=== PATIENT | male | born 1990 | race Caucasian/White ===

== ENCOUNTER 2021-09-17 12:25 | Outpatient (CLI) | payer BC, SELFPAY ==
--- NOTE | ~2021-09-17 | XR_ITS ---
EXAMINATION: XR chest 2V DATE: 09/17/2021 12:54 INDICATION: Chest pain TECHNIQUE: PA and lateral views of the chest are obtained. COMPARISON: None available FINDINGS: The lungs are free of acute opacities. There is no pleural effusion or pneumothorax. The ca rdiomediastinal silhouette is normal. There is mild thoracic spondylosis. IMPRESSION: 1. No acute cardiopulmonary abnormality. Reviewed, dictated and finalized at location A.
[2021-09-17 12:40] LABS: Basophils Absolute Auto 0.03 K/mm3 (0.00-0.10); Basophils Percent Auto 0.4 % (0.0-1.0); Eosinophils Absolute Auto 0.06 K/mm3 (0.02-0.50); Eosinophils Percent Auto 0.9 % (1.0-6.0); Hematocrit 46.9 % (40.0-54.0); Hemoglobin 16.4 g/dL (14.0-18.0); Immature Granulocyte Absolute 0.04 K/mm3 (0.00-0.00); Immature Granulocyte Percent A 0.6 % (0.0-0.0); Lymphocytes Absolute Auto 2.42 K/mm3 (1.10-4.50); Lymphocytes Percent Auto 35.4 % (18.0-42.0); Mean Corpuscular Hemoglobin 31.6 pg (27.0-31.0); Mean Corpuscular Volume 90.4 fL (78.0-102.0); Mean Platelet Volume 9.7 fl (8.7-11.0); Monocytes Absolute Auto 0.91 K/mm3 (0.10-0.90); Monocytes Percent Auto 13.3 % (2.0-11.0); Neutrophils Absolute Auto 3.4 K/mm3 (1.7-7.2); Neutrophils Percent Auto 49.4 % (50.0-70.0); Platelet Count Result 249 K/mm3 (150-420); Red Blood Count 5.19 M/mm3 (4.70-6.10); Red Cell Distribution Width 12.2 % (11.6-14.4); White Blood Count 6.8 K/mm3 (4.8-10.8)
--- NOTE | 2021-09-17 12:55 | ECG_ITS ---
Measurements Intervals [place] Rate: 91 P: 58 AK: 140 QRS: 83 QRSD: 91 T: 39 QT: 344 QTc: 424 Interpretive Statements SINUS RHYTHM DELAYED PRECORDIAL R/S TRANSITION BORDERLINE ECG Electronically Signed On 09-17-2021 13:02:56 CDT by Geoff Zuleta D.O.
[2021-09-17 12:58] LABS: Alanine Aminotransferase 71 U/L (16-63); Albumin Level 4.2 g/dL (3.4-5.0); Alkaline Phosphatase 80 U/L (46-116); Anion Gap 13 mmol/L (8-16); Aspartate Amino Transferase 28 U/L (15-37); Bilirubin,Total 0.9 mg/dL (0.00-1.00); Blood Urea Nitrogen 13 mg/dL (7-18); Calcium 8.6 mg/dL (8.5-10.1); Carbon Dioxide 26 mmol/L (21-32); Chloride 101 mmol/L (98-108); Estimated Glomerular Filt Rate > 60; Glucose 90 mg/dL (70-99); Osmolality Calculated 290 mOsm/kg (285-295); Sodium 140 mmol/L (136-145); Total Protein 7.6 g/dL (6.4-8.2)
== END 2021-09-17 12:26 | disposition home or self-care (01) ==
PROVIDERS: PCP Family Medicine; Visit Provider Nurse Practitioner Family
DX: R07.9 Chest pain, unspecified (principal)
CPT/HCPCS: 36415; 71046; 80053; 85025; 93005

== ENCOUNTER 2024-04-25 10:53 | Emergency (ER) | payer OTHER, SELFPAY ==
--- NOTE | 2024-04-25 11:11 | ER_ITS ---
This report was moved to the correct visit on 05/15/2024. The original report was signed by Igor Ghosh APRN on 04/25/24 1113. HPI - Skin/Abscess/Foreign Bdy General Chief complaint: Skin/Abscess/Foreign Body Stated complaint: R arm infection Time Seen by Provider: 04/25/24 10:59 History of Present Illness HPI narrative: 33-year-old male presents to the emergency room for evaluation of redness swelling and pain to his right elbow. Patient was seen at outside emergency room last night and diagnosed with cellulitis. Patient was given 1 round of IV Rocephin, sent home with clindamycin. Patient was instructed return to the emergency room if the swelling was worse. Denies fevers. Denies right arm weakness or neuropathy. Related Data Allergies Allergy/AdvReac Type Severity Reaction Status Date / Time Sulfa (Sulfonamide AdvReac Unknown Verified 04/25/24 10:54 Antibiotics) Review of Systems Review of Systems: ROS unremarkable except for stated in the HPI Exam Narrative: GENERAL: Well-appearing, well-nourished, no physical limitations, and in no acute distress. HEAD: Normocephalic, atraumatic. EYES: Conjunctivae normal, PERRLA and EOMI. CHEST: Clear to auscultation. No respiratory distress. No wheezes rales or rhonchi. HEART: Regular rate and rhythm. No murmur heard. Normal peripheral pulses. EXTREMITIES: Normal range of motion. No edema. No clubbing or cyanosis SKIN: Right elbow: Area of erythema and swelling. x2 overlying healing wounds NEURO: No focal deficits. Alert and oriented x3. MAEW. CN's II-XI intact bilaterally, normal gait PSYCH: Cooperative. Normal mood and affect. Discharge Plan Discharge Clinical Impression: Cellulitis of right elbow Patient Disposition: Home, Self-Care Condition: Stable Instructions: Antibiotic Form, Cellulitis (ED) Additional Instructions: Continue current medical management. Follow up with her primary care doctor in 2-3 days if symptoms are not improving. Follow-up/Referrals: Dean Ng M.D. [Primary Care Provider] - Time of Disposition: 11:12 This report may have been done utilizing a voice recognition system. Attempts have been made to correct errors. However, there may be uncorrected grammatical, spelling, and recognition errors present. Report Initialized date/time: Igor Ghosh APRN 04/25/24 / 1111 Electronically signed by: Igor Ghosh APRN 04/25/24 1113 [facility]
== END 2024-04-25 11:30 | disposition home or self-care (01) ==
LOC: ANHED 05-14 14:59
PROVIDERS: Emergency Provider Nurse Practitioner Family; PCP Family Medicine
DX: L03.113 Cellulitis of right upper limb (principal)
CPT/HCPCS: 99199; 99281

== ENCOUNTER 2024-04-26 01:03 | Inpatient (IN) | payer OTHER, SELFPAY ==
[2024-04-25 11:04] VITALS: BP 144/83; PULSE 89; RESP 12; TEMP 36.8; O2SAT 100
--- NOTE | 2024-04-25 11:06 | ED.SKABFB ---
HPI - Skin/Abscess/Foreign Bdy General Chief complaint: Skin/Abscess/Foreign Body Stated complaint: R arm infection Time Seen by Provider: 04/25/24 10:59 History of Present Illness HPI narrative: 33-year-old male presents to the emergency room for evaluation of redness swelling and pain to his right elbow. Patient was seen at outside emergency room last night and diagnosed with cellulitis. Patient was given 1 round of IV Rocephin, sent home with clindamycin. Patient was instructed return to the emergency room if the swelling was worse. Denies fevers. Denies right arm weakness or neuropathy. Related Data Allergies Allergy/AdvReac Type Severity Reaction Status Date / Time Sulfa (Sulfonamide AdvReac Unknown Verified 04/25/24 10:54 Antibiotics) Review of Systems Review of Systems: ROS unremarkable except for stated in the HPI Exam Narrative: GENERAL: Well-appearing, well-nourished, no physical limitations, and in no acute distress. HEAD: Normocephalic, atraumatic. EYES: Conjunctivae normal, PERRLA and EOMI. CHEST: Clear to auscultation. No respiratory distress. No wheezes rales or rhonchi. HEART: Regular rate and rhythm. No murmur heard. Normal peripheral pulses. EXTREMITIES: Normal range of motion. No edema. No clubbing or cyanosis SKIN: Right elbow: Area of erythema and swelling. x2 overlying healing wounds NEURO: No focal deficits. Alert and oriented x3. MAEW. CN's II-XI intact bilaterally, normal gait PSYCH: Cooperative. Normal mood and affect. Discharge Plan Discharge Clinical Impression: Cellulitis of right elbow Patient Disposition: Home, Self-Care Condition: Stable Instructions: Antibiotic Form, Cellulitis (ED) Additional Instructions: Continue current medical management. Follow up with her primary care doctor in 2-3 days if symptoms are not improving. Follow-up/Referrals: Dean Ng M.D. [Primary Care Provider] - Time of Disposition: 11:12
[2024-04-25 23:30] VITALS: BP 144/74; PULSE 87; RESP 13; TEMP 36.2; O2SAT 96; BMI 31.2
--- NOTE | 2024-04-25 23:58 | PM.IMHP ---
H&P: HPI History of Present Illness Date/Time: 04/25/24 23:58 Chief Complaint: Patient is sent to our hospital for direct admit with the cellulitis of right elbow Narrative: Our patient is a very pleasant 33 years old gentleman who is physically active. He was in a family birthday doing an obstacle course on his arms and knees with his friends and family few days ago., which caused abrasions on his knees and elbows. He was gardening a couple days ago in his backyard with added to a few more abrasions. He noticed some swelling of his right elbow with redness, got concerned and went to [place] [facility] for evaluation. He was diagnosed with cellulitis, given 1 dose of IV Rocephin and discharged on oral clindamycin. ER physician also marked edges of the affected area and instructed him to come back to the ER if the redness extends those marked lines. He came to our ER this morning for evaluation, was treated and discharged. He got worse in the afternoon hence went back to [place] [facility] who evaluated patient and recommended admission for IV antibiotics. No bed was available in local hospital hence I accepted patient for direct admission in our hospital. I saw and examined the patient at the bedside. He is complaining of pain and swelling in the right elbow but still has intact range of motion. He was given 1 dose of IV vancomycin in the transferring ER. I will admit the patient for IV antibiotics, orthopedic evaluation in a.m., medical management and further workup. Review of Systems Review of Systems: 14 systems were reviewed with pertinent positives and negatives per HPI. Except as documented in the HPI/progress notes, all other systems were reviewed and are negative. All systems reviewed & are unremarkable except as noted in HPI and below PMFSH Past Medical History Medical History (Updated 04/26/24 @ 00:57 by Yifan Samayoa MD) Essential hypertension Generalized anxiety disorder Social History Social History Smoking status: Never smoker Alcohol intake: current Drinks per week: 1 Substance use: never Do You Feel Safe in your Home?: Yes Lack of Transportation: No Lack of Food: Never True Current Housing: I Have Housing Concerned About Future Housing: No Difficulty Paying Gas/Electric Bills: No Difficulty Paying for Meds: No Currently Unemployed: No Education: Bachelor's Degree Difficulty w/ Childcare or Family Care: No Spiritual care concerns: No Meds Home Medications and Allergies Home Medications Medication Instructions Recorded Confirmed Type buspirone 15 mg tablet 15 mg PO BID 04/26/24 04/26/24 History buspirone 15 mg tablet 15 mg PO DAILY PRN anxiety 04/26/24 04/26/24 History clindamycin HCl 300 mg capsule 300 mg PO TID 04/26/24 04/26/24 History lisinopril 20 mg tablet 20 mg PO DAILY 04/26/24 04/26/24 History lorazepam 0.5 mg tablet 0.5 mg PO DAILY PRN Anxiety 04/26/24 04/26/24 History trazodone 50 mg tablet 50 mg PO HS 04/26/24 04/26/24 History Allergies Allergy/AdvReac Type Severity Reaction Status Date / Time Sulfa (Sulfonamide AdvReac Unknown Verified 04/25/24 10:54 Antibiotics) Vital Signs Vital Signs - 24 hr 04/25/24 11:04 Temperature 36.8 C Pulse Rate 89 Respiratory Rate 12 Blood Pressure 144/83 H Pulse Oximetry 100 Oxygen Delivery Room Air Exam Narrative: PHYSICAL EXAMINATION: Vital signs: Please see the chart General physical exam: Obese white gentleman, lying in bed, pleasant and cooperative with exam Head/eyes: Atraumatic, EOMI, PERRLA ENT: Moist mucous membranes, nasal passages clear Neck: Supple, full range of motion, trachea midline CVS: S1 + S2, regular rate and rhythm, no murmurs Respiratory: Bilaterally fair air entry in both lung proctor, mild B/L crackles, symmetric chest expansion, no distress Abdomen: Soft, non-tender, bowel sounds +ve, no organomegaly Extremities: No clubbing, no cy
--- NOTE | ~2024-04-26 | XR_ITS ---
EXAMINATION: XR elbow RT min 3V DATE: 04/26/2024 09:43 INDICATION: Right elbow cellulitis. TECHNIQUE: 4 views of right elbow were obtained. COMPARISON: None. FINDINGS: Bone alignment is normal. No fracture. Joint spaces are normal. No elbow joint effusion. Th ere is posterior soft tissue swelling. IMPRESSION: 1. Posterior soft tissue swelling. No evidence of osteoarthritis. Reviewed, dictated and finalized at location A.
[2024-04-26 00:03] VITALS: BMI 31.1
--- NOTE | 2024-04-26 00:11 | PC.NURSE ---
This patient, Kendall Ramirez, was admitted to [facility] Surg Room 326-01. Patient/family oriented to hospital policies and general routines including ID bracelet, bed and alarms, visiting hours, pain management, procedures, bathroom and other care routines, personal items, smoking policy, room service/diet, and visiting hours. Information on how to activate the Rapid Response Team has been discussed. Patient/Family are encouraged to report perceived risks to care and to ask questions if they do not understand what they are told or what they should do.
[2024-04-26 03:29] LABS: Basophils Percent Auto 0.2 % (0.2-1.2); Eosinophils Absolute Auto 0.1 K/mm3 (0-0.3); Eosinophils Percent Auto 0.5 % (0-4.4); Hematocrit 41.1 % (42.0-52.0); Hemoglobin 14.3 g/dL (14.0-18.0); Immature Granulocyte Absolute 0.05 K/mm3 (0.00-0.031); Immature Granulocyte Percent A 0.4 % (0-0.5); Lymphocytes Absolute Auto 2.08 K/mm3 (0.9-3.2); Lymphocytes Percent Auto 17.1 % (18.3-44.2); Mean Corpuscular HGB Conc 34.8 g/dl (32-36); Mean Corpuscular Hemoglobin 32.1 pg (26-34); Mean Corpuscular Volume 92.2 fl (80-100); Mean Platelet Volume 9.7 fl (7.4-10.4); Monocytes Absolute Auto 1.3 K/mm3 (0.1-0.6); Monocytes Percent Auto 10.8 % (2.6-8.5); Neutrophils Absolute Auto 8.6 K/mm3 (1.3-6.7); Platelet Count Result 174 k/mm3 (150-375); Red Blood Count 4.46 M/mm3 (4.6-6.20); Red Cell Distribution Width 12.7 % (11.5-14.5); White Blood Count 12.2 K/mm3 (4.5-10.0)
[2024-04-26 03:42] LABS: Alanine Aminotransferase 31 U/L (6-50); Albumin Level 4.4 g/dL (3.5-5.1); Alkaline Phosphatase 71 U/L (38-126); Anion Gap 6 mmol/L (4-12); Aspartate Amino Transferase 27 U/L (17-59); Bilirubin,Total 1.4 mg/dL (0.2-1.3); Blood Urea Nitrogen 11 mg/dL (9-20); Carbon Dioxide 24 mmol/L (22-30); Chloride 108 mmol/L (98-107); Estimated CRCL calculation 104 ml/min; Estimated Glomerular Filt Rate > 60; Glucose 104 mg/dL (65-110); Magnesium 2.1 mg/dL (1.6-2.3); Phosphorus 3.2 mg/dL (2.5-4.5); Potassium 3.9 mmol/L (3.4-5.0); Sodium 138 mmol/L (137-145)
[2024-04-26] MEDS: ACETAMINOPHEN 325 MG TABLET 650 MG PO ×2 (03:56→12:54)
[2024-04-26 05:26] VITALS: BP 135/77; PULSE 96; RESP 12; TEMP 36.8; O2SAT 96
[2024-04-26] MEDS: VANCOMYCIN 1,500 MG/NS 500 ML 1,500 MG/500 ML BAG 250 MG IVPB ×2 (06:11→18:05)
--- NOTE | 2024-04-26 08:20 | PM.IMPN ---
Progress Note: A&P Assessment and Plan (1) Cellulitis of right elbow: Code(s): L03.113 - Cellulitis of right upper limb Status: Acute (2) Leukocytosis: Code(s): D72.829 - Elevated white blood cell count, unspecified Status: Acute (3) Olecranon bursitis of right elbow: Code(s): M70.21 - Olecranon bursitis, right elbow Status: Acute (4) Generalized anxiety disorder: Code(s): F41.1 - Generalized anxiety disorder Status: Acute (5) Essential hypertension: Code(s): I10 - Essential (primary) hypertension Status: Acute Plan Admit patient to medical unit under full inpatient status Patient has the cellulitis of the right elbow with possible right olecranon bursitis Patient received 1 dose of IV vancomycin in the transferring ER Continue with IV vancomycin in our hospital with pharmacy to dose based on renal functions Added Rocephin 1 g IV daily Labs and electrolytes reviewed from transferring ER Patient's leukocytosis was borderline high at 12.4 - monitor Orthopedic evaluation ordered for further management and treatment recommendations Repeat labs in a.m. Electrolyte replacement as per protocol. Patient will be monitored very closely on the floor. # chronic htn- continue home lisinopril 20 mg # chronic insomnia- continue home trazodone Time Spent With Patient Time with patient: 25 - 35 minutes Subjective Date/time seen: 04/26/24 08:20 Interval history: 33-year-old male presents to the emergency room for evaluation of redness swelling and pain to his right elbow. Notes from er and h/p reviewed: He was in a family birthday doing an obstacle course on his arms and knees with his friends and family few days ago., which caused abrasions on his knees and elbows. He was gardening a couple days ago and added few more abrasions. He noticed some swelling of his right elbow with redness, got concerned and went to [place] [facility] for evaluation. He was diagnosed with cellulitis, given 1 dose of IV Rocephin and discharged on oral clindamycin. ER physician also marked edges of the affected area and instructed him to come back to the ER if the redness extends those marked lines. He came to our ER this morning for evaluation, was treated and discharged. He got worse in the afternoon hence went back to [place] ER who evaluated patient and recommended admission for IV antibiotics. No bed was available in local hospital - so he was accepted as a direct admission here. He is admitted for IV antibiotics, orthopedic evaluation in a.m (consult is placed per Dr Samayoa), medical management and further workup. Ortho was consulted for possible aspiration Review of Systems Review of Systems: 14 systems were reviewed with pertinent positives and negatives per HPI. Except as documented in the HPI/progress notes, all other systems were reviewed and are negative. All systems reviewed & are unremarkable except as noted in HPI and below Exam Narrative: PHYSICAL EXAMINATION: Vital signs: Please see the chart General physical exam: Obese white gentleman, lying in bed, pleasant and cooperative with exam Head/eyes: Atraumatic, EOMI, PERRLA ENT: Moist mucous membranes, nasal passages clear Neck: Supple, full range of motion, trachea midline CVS: S1 + S2, regular rate and rhythm, no murmurs Respiratory: Bilaterally fair air entry in both lung proctor, mild B/L crackles, symmetric chest expansion, no distress Abdomen: Soft, non-tender, bowel sounds +ve, no organomegaly Extremities: No clubbing, no cyanosis, no edema, no calf tenderness Musculoskeletal: Moves all, full range of motion, no muscle spasms, ++ swelling/erythema over right elbow/olecranon process Skin: Warm, dry, no jaundice, no cyanosis Neurological: Awake, alert, oriented x 3, cranial nerves II-XII intact, no focal neurological deficits Psychiatric: Normal mood, Non suicidal Objective Data Vital Signs Vital Signs: Vital Si
[2024-04-26] MEDS: busPIRone HCL 5 MG TABLET 15 MG PO ×2 (09:19→16:40)
[2024-04-26] MEDS: lisinopriL 20 MG TABLET PO (09:19)
[2024-04-26] MEDS: ENOXAPARIN 40 MG/0.4 ML SYRINGE SUB-Q (09:20)
--- NOTE | 2024-04-26 11:06 | PM.CNOR ---
Assessment and Plan Assessment and plan (1) Cellulitis of right elbow: Code(s): L03.113 - Cellulitis of right upper limb Status: Acute Assessment and Plan: Plan for aspiration of right elbow olecranon bursa. Risks, benefits and alternatives discussed with the patient. Questions answered. He verbalizes understanding and would like to proceed. Plan New patient evaluation for chief complaint Right elbow pain and swelling. History, physical exam and radiographs reviewed with the patient. Radiographs show soft tissue swelling posterior elbow. Exam show cellulitis right elbow With small olecranon bursitis. Discussed the condition, nature, etiology and course of natural history with the patient. Treatment options including surgical and nonoperative treatment were reviewed. Risks and benefits of each as well as alternatives reviewed. The patient's questions were answered. Conservative treatment ice, compression and elevation. No surgical indication at this time. continue IV antibiotics. Indicated for aspiration right elbow olecranon bursa with laboratory testing and cultures. History of Present Illness HPI Consult date: 04/26/24 Requesting physician: Yifan Samayoa MD Chief complaint: Cellulitis Narrative: 33-year-old with worsening right elbow redness and swelling. Initially with activity several days ago caused abrasion to posterior elbow. Multiple visits to the emergency room with single dose of IV antibiotics and oral antibiotics. Condition worsened and patient was admitted directly for IV antibiotics. Review of Systems Constitutional: Constitutional: Denies fever(s) Eyes: Eyes: Denies blurry vision ENT: Reports Normal hearing present Cardiovascular: Cardiovascular: Denies chest pain and Denies dyspnea Respiratory: Respiratory: Denies dyspnea and Denies wheezing Gastrointestinal: Gastrointestinal: Denies abdominal pain Genitourinary: Genitourinary: Denies urinary urgency Musculoskeletal: Musculoskeletal: Reports as per HPI and Denies numbness Integumentary/Breasts: Skin/Breast: Denies changing lesions and Denies sores Neurologic: Reports Normal hearing present, Denies behavioral changes, Denies confusion, Denies numbness and Denies convulsions Psychiatric: Psychiatric: Denies behavioral changes, Denies confusion and Denies hallucinations Endocrine: Endocrine: Denies heat intolerance Hematologic/Lymphatic: Hematologic/Lymphatic: Denies easy bleeding Allergic/Immunologic: Allergic/Immunologic: Denies wheezing PMFSH Past Medical History Medical History Essential hypertension Generalized anxiety disorder Social History Social History Smoking status: Never smoker Alcohol intake: current Drinks per week: 1 Substance use: never Do You Feel Safe in your Home?: Yes Lack of Transportation: No Lack of Food: Never True Current Housing: I Have Housing Concerned About Future Housing: No Difficulty Paying Gas/Electric Bills: No Difficulty Paying for Meds: No Currently Unemployed: No Education: Bachelor's Degree Difficulty w/ Childcare or Family Care: No Spiritual care concerns: No Meds Home Medications and Allergies Home Medications Medication Instructions Recorded Confirmed Type buspirone 15 mg tablet 15 mg PO BID 04/26/24 04/26/24 History buspirone 15 mg tablet 15 mg PO DAILY PRN anxiety 04/26/24 04/26/24 History clindamycin HCl 300 mg capsule 300 mg PO TID 04/26/24 04/26/24 History lisinopril 20 mg tablet 15 mg PO DAILY 04/26/24 04/26/24 History lorazepam 0.5 mg tablet 0.5 mg PO DAILY PRN Anxiety 04/26/24 04/26/24 History trazodone 50 mg tablet 50 mg PO HS 04/26/24 04/26/24 History Allergies Allergy/AdvReac Type Severity Reaction Status Date / Time Sulfa (Sulfonamide AdvReac Unknown Verified 04/25/24 10:54 Antibiotics) Vital
[2024-04-26] MEDS: SODIUM CHLORIDE 0.9% IV 1,000 ML 100 ML IV CONT ×2 (12:26→21:02)
[2024-04-26 13:19] LABS: Color Synovial Fluid Red (Colorless); Source Synovial Fluid Synovial fluid
[2024-04-26 13:20] LABS: Appearance Synovial Fluid Bloody (Clear)
--- NOTE | 2024-04-26 13:21 | P.OPB_ITS ---
Procedure Note - Brief Procedure Note - Brief Date of procedure: 04/26/24 Cellulitis/Olecranon Bursitis Post-op diagnosis: Same Procedure performed: Right Elbow Bursitis Aspiration Surgeon: KERMIT Salcedo Radiologic Technology Teacher: n/a Anesthesia: none Findings: Right Elbow Olecranon Aspiration performed under sterile conditions. STAT gram stain, cell count and culture sent to lab. Adhesive band-aid applied. Description of procedure: The risks of injection were reviewed including but not limited to skin color changes, atrophy of the soft tissue, tendon or soft tissue rupture, joint degeneration, hyper inflammatory response, allergic reaction, continued pain or dysfunction. Specific risks of the procedure including deep infection or soft tissue rupture or recurrence of symptoms reviewed. No guarantees were offered. The patient understands the need for possible further treatment. Implants: n/a Estimated blood loss (mL): 0 Total Tourniquet Time: 0 IV fluids (mL): 7 Urine output (mL): 0 Drains: No Packing: No Pathology: None sent Complications: No immediate complications Condition: Stable Disposition: No change
[2024-04-26 13:55] VITALS: BP 125/65; PULSE 96; RESP 16; TEMP 36.7; O2SAT 95
[2024-04-26 13:56] LABS: Crystals Synovial Fluid None Seen (None Seen)
[2024-04-26 14:25] LABS: Neutrophils Synovial Fluid 100 % (0-25)
[2024-04-26] MEDS: HYDROcodone/acetaminophen (*CRX) 5-325 MG TABLET 1 TAB PO ×2 (16:43→21:06)
--- NOTE | 2024-04-26 19:05 | PC.NURSE ---
On 04/26/24, the INTERACTIVE MULTIMEDIA DESIGNER,Sylvia Roper, provided care and completed [employer] documentation on this patient. I have reviewed the INTERACTIVE MULTIMEDIA DESIGNER's documentation and agree with the findings.
[2024-04-26 20:54] VITALS: BP 138/77; PULSE 85; RESP 16; TEMP 36.1; O2SAT 100
[2024-04-26] MEDS: traZODone HCL 50 MG TABLET PO (21:01)
[2024-04-27] MEDS: HYDROcodone/acetaminophen (*CRX) 5-325 MG TABLET 1 TAB PO (01:59)
[2024-04-27 06:02] LABS: Basophils Percent Auto 0.3 % (0.2-1.2); Eosinophils Absolute Auto 0.1 K/mm3 (0-0.3); Eosinophils Percent Auto 0.7 % (0-4.4); Hematocrit 39.2 % (42.0-52.0); Immature Granulocyte Absolute 0.06 K/mm3 (0.00-0.031); Immature Granulocyte Percent A 0.5 % (0-0.5); Lymphocytes Absolute Auto 2.37 K/mm3 (0.9-3.2); Lymphocytes Percent Auto 20.8 % (18.3-44.2); Mean Corpuscular HGB Conc 33.2 g/dl (32-36); Mean Corpuscular Hemoglobin 31.4 pg (26-34); Mean Corpuscular Volume 94.7 fl (80-100); Mean Platelet Volume 10.2 fl (7.4-10.4); Monocytes Absolute Auto 1.2 K/mm3 (0.1-0.6); Monocytes Percent Auto 10.5 % (2.6-8.5); Neutrophils Absolute Auto 7.7 K/mm3 (1.3-6.7); Neutrophils Percent Auto 67.2 % (45.5-73.1); Platelet Count Result 184 k/mm3 (150-375); Red Blood Count 4.14 M/mm3 (4.6-6.20); Red Cell Distribution Width 12.5 % (11.5-14.5); White Blood Count 11.4 K/mm3 (4.5-10.0)
[2024-04-27 06:11] LABS: Anion Gap 6 mmol/L (4-12); Blood Urea Nitrogen 8 mg/dL (9-20); Calcium 8.4 mg/dL (8.4-10.2); Carbon Dioxide 24 mmol/L (22-30); Chloride 108 mmol/L (98-107); Estimated CRCL calculation 128 ml/min; Estimated Glomerular Filt Rate > 60; Glucose 99 mg/dL (65-110); Potassium 4.1 mmol/L (3.4-5.0); Sodium 138 mmol/L (137-145)
[2024-04-27 06:57] LABS: Vancomycin Trough 5.6 ug/mL (10.0-20.0)
[2024-04-27] MEDS: VANCOMYCIN 1,750 MG/NS 500 ML 1,750 MG/500 ML BAG 250 MG IVPB (08:02)
[2024-04-27] MEDS: busPIRone HCL 5 MG TABLET 15 MG PO ×2 (08:04→15:07)
[2024-04-27] MEDS: lisinopriL 20 MG TABLET PO (08:04)
[2024-04-27] MEDS: ENOXAPARIN 40 MG/0.4 ML SYRINGE SUB-Q (08:04)
--- NOTE | 2024-04-27 09:09 | PM.PNORT ---
Progress Note: A&P Assessment and Plan (1) Olecranon bursitis of right elbow: Code(s): M70.21 - Olecranon bursitis, right elbow <KERMIT Salcedo - Last Filed: 04/27/24 12:58> Status: Acute <KERMIT Salcedo - Last Filed: 04/27/24 12:58> Assessment and Plan: 1 day s/p aspiration of olecranon bursa. STAT Gram stain reveals few gram positive cocci in clusters and many WBCS. Cultures pending. Cell count with no evidence of crystals. Elevated neutrophils. Some tests unable to be performed due to clotting. Patient currently on IV Vancomycin and Ceftriaxone. Continue IV antibiotics at this time. Possible transition to oral antibiotics with discharge tomorrow pending continued clinical improvement. Pain control. Ice. Elevation. No surgical indication at this time. <KERMIT Salcedo - Last Filed: 04/27/24 12:58> (2) Cellulitis of right elbow: Code(s): L03.113 - Cellulitis of right upper limb <KERMIT Salcedo - Last Filed: 04/27/24 12:58> Status: Acute <KERMIT Salcedo - Last Filed: 04/27/24 12:58> Assessment and Plan: Continue IV antibiotics at this time. Plan for transition to orals prior to discharge. <KERMIT Salcedo - Last Filed: 04/27/24 12:58> Assessment and Plan: Reviewed history, exam, radiographs and current labs with attending MD and covering surgeon, Dr. Sow, who agrees with current plan as indicated above. No further recommendations from Dr. Sow at this time. <KERMIT Salcedo - Last Filed: 04/27/24 12:58> Reviewed history, exam, radiographs and current labs with attending MD and covering surgeon, Dr. Sow, who agrees with current plan as indicated above. No further recommendations from Dr. Sow at this time. Patient seen and examined. Agree with note. Swelling and erythema improved. Discussed with patient. Awaiting culture results and sensitivity. We will start anti inflammatory. <Kendall Sow MD - Last Filed: 04/27/24 13:00> Subjective Subjective Date/Time Seen: 04/27/24 09:09 <KERMIT Salcedo - Last Filed: 04/27/24 12:58> Interval history: 1 day s/p aspiration right elbow olecranon bursa. Patient reports continued pain with mild improvement. Hopeful for d/c soon. No new complaints. <KERMIT Salcedo - Last Filed: 04/27/24 12:58> Review of Systems Review of Systems: All systems reviewed & are unremarkable except as noted in HPI and below <KERMIT Salcedo - Last Filed: 04/27/24 12:58> Exam Const: General: healthy appearing; No in distress or confusion <KERMIT Salcedo - Last Filed: 04/27/24 12:58> Orientation/consciousness: oriented to person, oriented to place, oriented to time and No confusion <KERMIT Salcedo - Last Filed: 04/27/24 12:58> HENMT: Head: normal to inspection <KERMIT Salcedo - Last Filed: 04/27/24 12:58> Eyes: Conjunctivae: conjunctivae normal <KERMIT Salcedo - Last Filed: 04/27/24 12:58> Sclera: sclerae normal <KERMIT Salcedo - Last Filed: 04/27/24 12:58> Neck: Neck: supple <KERMIT Salcedo - Last Filed: 04/27/24 12:58> Resp: Effort & Inspection: normal respiratory effort and no audible wheezes <KERMIT Salcedo - Last Filed: 04/27/24 12:58> Cardio: Rate: regular rate <KERMIT Salcedo - Last Filed: 04/27/24 12:58> Rhythm: regular rhythm <KERMIT Salcedo - Last Filed: 04/27/24 12:58> Skin: Wounds: wounds noted ( Abrasion posterior right elbow) <KERMIT Salcedo - Last Filed: 04/27/24 12:58> Neuro: General: oriented to person, oriented to place, oriented to time and No confusion <Alana Go, CLAIMS ASSOCIATE - Last Filed: 04/27/24 12:58> Extrem: Right upper extremity: shoulder/upper arm axillary nerve sensory function normal, normal ROM (FF 130, Abd 120, ER 70, IR T7) and other (RC 5/5, Bicep 5/5, Deltoid 5/5, ER 5/5); no tenderness and no swelling, elbow/forearm tenderness of the ole
[2024-04-27 09:12] VITALS: BP 127/65; PULSE 87; RESP 18; TEMP 36.4; O2SAT 97
--- NOTE | 2024-04-27 09:53 | PM.IMPN ---
Progress Note: A&P Assessment and Plan (1) Cellulitis of right elbow: Code(s): L03.113 - Cellulitis of right upper limb Status: Acute (2) Leukocytosis: Code(s): D72.829 - Elevated white blood cell count, unspecified Status: Acute (3) Olecranon bursitis of right elbow: Code(s): M70.21 - Olecranon bursitis, right elbow Status: Acute (4) Generalized anxiety disorder: Code(s): F41.1 - Generalized anxiety disorder Status: Acute (5) Essential hypertension: Code(s): I10 - Essential (primary) hypertension Status: Acute Plan Admit patient to medical unit under full inpatient status Patient has the cellulitis of the right elbow with possible right olecranon bursitis Continue with IV vancomycin in our hospital with pharmacy to dose based on renal functions Rocephin 1 g IV daily Labs and electrolytes reviewed from transferring ER Patient's leukocytosis was borderline high at 12.4 - monitor /- aspiration of olecranon bursa per ortho. pain management- norco prn. possible discharge tomorrow based on clinical improvement with ortho following cultures outpt Repeat labs in a.m. Electrolyte replacement as per protocol. Patient will be monitored very closely on the floor. # chronic htn- continue home lisinopril 20 mg # chronic insomnia- continue home trazodone Time Spent With Patient Time with patient: 15 - 25 minutes Subjective Date/time seen: 04/27/24 09:53 Interval history: 33-year-old male presents to the emergency room for evaluation of redness swelling and pain to his right elbow. He was in a family birthday doing an obstacle course on his arms and knees with his friends and family few days ago., which caused abrasions on his knees and elbows. He was gardening a couple days ago and added few more abrasions. He noticed some swelling of his right elbow with redness, got concerned and went to [facility] for evaluation. He was diagnosed with cellulitis, given 1 dose of IV Rocephin and discharged on oral clindamycin. ER physician also marked edges of the affected area and instructed him to come back to the ER if the redness extends those marked lines. He came to our ER this morning for evaluation, was treated and discharged. He got worse in the afternoon hence went back to [facility] who evaluated patient and recommended admission for IV antibiotics. No bed was available in local hospital - so he was accepted as a direct admission here. He is admitted for IV antibiotics, orthopedic evaluation in a.m (consult is placed per Dr Samayoa), medical management and further workup. Ortho was consulted for possible aspiration. 04/27- 1 day s/p aspiration right elbow olecranon bursa. Pain is controlled- took norco last night prior to bed and no meds needed today. Will continue IV Vancomycin and Ceftriaxone. Possible transition to oral antibiotics with discharge tomorrow depending on clinical improvement. Ortho will follow cultures as an outpatient and adjust antibiotic therapy as indicated. Review of Systems Review of Systems: 14 systems were reviewed with pertinent positives and negatives per HPI. Except as documented in the HPI/progress notes, all other systems were reviewed and are negative. All systems reviewed & are unremarkable except as noted in HPI and below Exam Narrative: PHYSICAL EXAMINATION: Vital signs: Please see the chart General physical exam: Obese white gentleman, lying in bed, pleasant and cooperative with exam Head/eyes: Atraumatic, EOMI, PERRLA ENT: Moist mucous membranes, nasal passages clear Neck: Supple, full range of motion, trachea midline CVS: S1 + S2, regular rate and rhythm, no murmurs Respiratory: Bilaterally fair air entry in both lung proctor, mild B/L crackles, symmetric chest expansion, no distress Abdomen: Soft, non-tender, bowel sounds +ve, no organomegaly Extremities: No clubbing, no cyanosis, no edema, no calf tenderness Musculoskeletal:
--- NOTE | 2024-04-27 12:55 | PM.PNORT ---
Subjective Subjective Date/Time Seen: 04/27/24 12:55 Principal diagnosis: right elbow olecranon bursitis Interval history: patient states pain improved. Still with swelling and tightness of the elbow. Denies fever numbness or tingling. Exam Const: General: healthy appearing; No in distress or confusion Orientation/consciousness: oriented to person, oriented to place, oriented to time and No confusion HENMT: Head: normal to inspection Eyes: Conjunctivae: conjunctivae normal Sclera: sclerae normal Neck: Neck: supple Resp: Effort & Inspection: normal respiratory effort and no audible wheezes Cardio: Rate: regular rate Rhythm: regular rhythm Skin: Wounds: wounds noted ( Abrasion posterior right elbow) Neuro: General: oriented to person, oriented to place, oriented to time and No confusion Extrem: Right upper extremity: shoulder/upper arm axillary nerve sensory function normal, normal ROM (FF 130, Abd 120, ER 70, IR T7) and other (RC 5/5, Bicep 5/5, Deltoid 5/5, ER 5/5); no tenderness and no swelling, elbow/forearm tenderness of the olecranon, swelling of the olecranon ( bursa), abnormal ROM pain with active ROM during with extension and with flexion and with range as follows ( lacks 5? of extension, flexion to 130?) and other (bicep 5/5, tricep 4+/5, pronation 5/5, supination 5/5); no ecchymosis and no crepitus, wrist normal ROM and radial pulse present; no tenderness and Extremity exam: right hand neuromotor exam normal wrist extension normal, thumb opposition normal, thumb IP flexion normal and fingers 2-5 ABduction normal, neurosensory exam normal radial nerve sensory function normal, ulnar nerve sensory function normal, median nerve sensory function normal and digital nerve sensory function normal and vascular exam radial pulse present and normal capillary refill; no tenderness, no swelling and no crepitus Left upper extremity: normal to inspection, shoulder/upper arm inspection abnormal, axillary nerve sensory function normal, normal ROM and other (RC 5/5, Bicep 5/5, Deltoid 5/5, ER 5/5); no tenderness and no swelling, elbow/forearm normal ROM and other (bicep 5/5, tricep 5/5, pronation 5/5, supination 5/5); no tenderness, no swelling, no ecchymosis and no crepitus, wrist normal ROM, radial pulse present and other (wrist extension 5/5, wrist flexion4/5); no tenderness and hand neuromotor exam normal Details: wrist extension normal and thumb IP flexion normal, neurosensory exam normal Details: radial nerve sensory function normal, ulnar nerve sensory function normal and median nerve sensory function normal, tendon exam normal Location: of all digits and vascular exam radial pulse present and normal capillary refill; no tenderness Right lower extremity: normal to inspection Left lower extremity: normal to inspection Other: 6 cm diameter erythema posterior right elbow with mild fluctuance over the olecranon. Some mild skin maceration and abrasion over the olecranon. No active drainage. Full range of motion of elbow and forearm. Tender to palpation over the erythematous area. Muscle compartments soft. Neurovascular intact. Psych: Affect: normal affect Objective Data Vital Signs Vital Signs: Vital Signs - 24 hr 04/26/24 13:55 04/26/24 20:54 04/26/24 20:00 Temperature 98.1 F 96.9 F L Pulse Rate 96 85 Respiratory Rate 16 16 Blood Pressure 125/65 138/77 Pulse Oximetry 95 100 Oxygen Delivery Room Air 04/27/24 09:12 04/27/24 08:00 Temperature 97.5 F L Pulse Rate 87 Respiratory Rate 18 Blood Pressure 127/65 Pulse Oximetry 97 Oxygen Delivery Room Air Intake/Output Intake/Output: Intake & Output 04/24/24 04/25/24 04/26/24 04/27/24 23:59 23:59 23:59 23:59 Intake Total 3000 480 Output Total 0 Balance 3000 480 Meds/Results Medications: Active Medications Generic Name Dose Route Start Last Admin Trade Name Freq PRN Reason Stop Dose Admin Acetaminophen 650 mg 04/26/24 01
[2024-04-27 14:00] VITALS: BP 146/72; PULSE 92; RESP 16; TEMP 36.7; O2SAT 99
[2024-04-27] MEDS: VANCOMYCIN 1,750 MG/NS 500 ML 1,750 MG/500 ML BAG 150 MG IVPB (15:07)
[2024-04-27] MEDS: IBUPROFEN IV 800 MG/200 ML 800 MG/200 ML BAG 385.23 MG IVPB (15:07)
[2024-04-27] MEDS: traZODone HCL 50 MG TABLET PO (20:30)
[2024-04-27 20:31] VITALS: BP 135/79; PULSE 86; RESP 18; TEMP 36.4; O2SAT 98
[2024-04-27] MEDS: SODIUM CHLORIDE 0.9% IV 250 ML 20 ML (21:11)
[2024-04-28] MEDS: VANCOMYCIN 1,750 MG/NS 500 ML 1,750 MG/500 ML BAG 150 MG IVPB (00:15)
[2024-04-28] MEDS: IBUPROFEN IV 800 MG/200 ML 800 MG/200 ML BAG 385.23 MG IVPB ×2 (02:12→08:40)
[2024-04-28 05:07] VITALS: BP 116/71; PULSE 96; RESP 18; TEMP 36.2; O2SAT 97
[2024-04-28 07:01] LABS: Basophils Percent Auto 0.2 % (0.2-1.2); Eosinophils Absolute Auto 0.1 K/mm3 (0-0.3); Eosinophils Percent Auto 1.5 % (0-4.4); Hematocrit 35.9 % (42.0-52.0); Hemoglobin 12.4 g/dL (14.0-18.0); Immature Granulocyte Absolute 0.04 K/mm3 (0.00-0.031); Immature Granulocyte Percent A 0.5 % (0-0.5); Lymphocytes Absolute Auto 1.52 K/mm3 (0.9-3.2); Lymphocytes Percent Auto 17.7 % (18.3-44.2); Mean Corpuscular HGB Conc 34.5 g/dl (32-36); Mean Corpuscular Hemoglobin 31.8 pg (26-34); Mean Corpuscular Volume 92.1 fl (80-100); Mean Platelet Volume 9.7 fl (7.4-10.4); Monocytes Absolute Auto 0.9 K/mm3 (0.1-0.6); Monocytes Percent Auto 9.9 % (2.6-8.5); Neutrophils Percent Auto 70.2 % (45.5-73.1); Platelet Count Result 198 k/mm3 (150-375); Red Cell Distribution Width 12.6 % (11.5-14.5); White Blood Count 8.6 K/mm3 (4.5-10.0)
[2024-04-28 07:11] LABS: Anion Gap 7 mmol/L (4-12); Blood Urea Nitrogen 8 mg/dL (9-20); Calcium 8.6 mg/dL (8.4-10.2); Carbon Dioxide 22 mmol/L (22-30); Chloride 110 mmol/L (98-107); Estimated CRCL calculation 128 ml/min; Estimated Glomerular Filt Rate > 60; Glucose 107 mg/dL (65-110); Sodium 139 mmol/L (137-145)
[2024-04-28] MEDS: busPIRone HCL 5 MG TABLET 15 MG PO (07:23)
[2024-04-28] MEDS: lisinopriL 20 MG TABLET PO (07:24)
[2024-04-28] MEDS: HYDROcodone/acetaminophen (*CRX) 5-325 MG TABLET 1 TAB PO (07:24)
[2024-04-28 07:29] LABS: Vancomycin Trough 16.8 ug/mL (10.0-20.0)
[2024-04-28] MEDS: ENOXAPARIN 40 MG/0.4 ML SYRINGE SUB-Q (08:32)
--- NOTE | 2024-04-28 10:10 | PM.IMPN ---
Progress Note: A&P Assessment and Plan (1) Cellulitis of right elbow: Code(s): L03.113 - Cellulitis of right upper limb Status: Acute (2) Leukocytosis: Code(s): D72.829 - Elevated white blood cell count, unspecified Status: Acute (3) Olecranon bursitis of right elbow: Code(s): M70.21 - Olecranon bursitis, right elbow Status: Acute (4) Generalized anxiety disorder: Code(s): F41.1 - Generalized anxiety disorder Status: Acute (5) Essential hypertension: Code(s): I10 - Essential (primary) hypertension Status: Acute Plan Admit patient to medical unit under full inpatient status Patient has the cellulitis of the right elbow with possible right olecranon bursitis Continue with IV vancomycin in our hospital with pharmacy to dose based on renal functions Labs and electrolytes reviewed from transferring ER Patient's leukocytosis was borderline high at 12.4 - monitor /6- aspiration of olecranon bursa per ortho. pain management- norco prn. possible discharge tomorrow based on clinical improvement with ortho following cultures outpt Repeat labs in a.m. Electrolyte replacement as per protocol. Patient will be monitored very closely on the floor. # chronic htn- continue home lisinopril 20 mg # chronic insomnia- continue home trazodone Time Spent With Patient Time with patient: 25 - 35 minutes Subjective Date/time seen: 04/28/24 10:10 Interval history: 33-year-old male presents to the emergency room for evaluation of redness swelling and pain to his right elbow. He was in a family birthday doing an obstacle course on his arms and knees with his friends and family few days ago., which caused abrasions on his knees and elbows. He was gardening a couple days ago and added few more abrasions. He noticed some swelling of his right elbow with redness, got concerned and went to [place] for evaluation. He was diagnosed with cellulitis, given 1 dose of IV Rocephin and discharged on oral clindamycin. ER physician also marked edges of the affected area and instructed him to come back to the ER if the redness extends those marked lines. He came to our ER this morning for evaluation, was treated and discharged. He got worse in the afternoon hence went back to [place] who evaluated patient and recommended admission for IV antibiotics. No bed was available in local hospital - so he was accepted as a direct admission here. He is admitted for IV antibiotics, orthopedic evaluation in a.m (consult is placed per Dr Samayoa), medical management and further workup. Ortho was consulted for possible aspiration. 04/27- 1 day s/p aspiration right elbow olecranon bursa. Pain is controlled- took norco last night prior to bed and no meds needed today. Will continue IV Vancomycin and Ceftriaxone. Possible transition to oral antibiotics with discharge tomorrow depending on clinical improvement. Ortho will follow cultures as an outpatient and adjust antibiotic therapy as indicated. 04/28- pt is seen and examined today- wound culture is showing Staph aureus so far- awaiting sensitivities. Review of Systems Review of Systems: 14 systems were reviewed with pertinent positives and negatives per HPI. Except as documented in the HPI/progress notes, all other systems were reviewed and are negative. All systems reviewed & are unremarkable except as noted in HPI and below Exam Narrative: PHYSICAL EXAMINATION: Vital signs: Please see the chart General physical exam: Obese white gentleman, lying in bed, pleasant and cooperative with exam Head/eyes: Atraumatic, EOMI, PERRLA ENT: Moist mucous membranes, nasal passages clear Neck: Supple, full range of motion, trachea midline CVS: S1 + S2, regular rate and rhythm, no murmurs Respiratory: Bilaterally fair air entry in both lung proctor, mild B/L crackles, symmetric chest expansion, no distress Abdomen: Soft, non-tender, bowel sounds +ve, no organomegaly
--- NOTE | 2024-04-28 10:54 | PM.PNORT ---
Progress Note: A&P Assessment and Plan (1) Olecranon bursitis of right elbow: Code(s): M70.21 - Olecranon bursitis, right elbow Status: Acute Assessment and Plan: 2 day s/p aspiration of olecranon bursa. STAT Gram stain reveals few gram positive cocci in clusters and many WBCS. Cultures= S. aureus. Sensitivity pending. Patient currently on IV Vancomycin and Ceftriaxone. Transition to oral antibiotics with discharge today- OK from ortho standpoint. patient is allergic to sulfa. May consider doxycycline for MRSA coverage. Will follow sensitivities as an outpatient. Pain control. Ice. Elevation. Close follow-up with orthopedics. Outpatient visit in 1-2 weeks. (2) Cellulitis of right elbow: Code(s): L03.113 - Cellulitis of right upper limb Status: Acute Assessment and Plan: Continue IV antibiotics at this time. Plan for transition to orals prior to discharge. Subjective Subjective Date/Time Seen: 04/28/24 10:54 Principal diagnosis: Right elbow olecranon bursitis Interval history: 2 day s/p aspiration right elbow olecranon bursa. Patient reports improved pain and swelling. Hopeful for d/c soon. No new complaints. Review of Systems Constitutional: Constitutional: Denies fever(s) Eyes: Eyes: Denies blurry vision ENT: Reports Normal hearing present Cardiovascular: Cardiovascular: Denies chest pain and Denies dyspnea Respiratory: Respiratory: Denies dyspnea and Denies wheezing Gastrointestinal: Gastrointestinal: Denies abdominal pain Genitourinary: Genitourinary: Denies urinary urgency Musculoskeletal: Musculoskeletal: Reports as per HPI and Denies numbness Integumentary/Breasts: Skin/Breast: Denies changing lesions and Denies sores Neurologic: Reports Normal hearing present, Denies behavioral changes, Denies confusion, Denies numbness and Denies convulsions Psychiatric: Psychiatric: Denies behavioral changes, Denies confusion and Denies hallucinations Endocrine: Endocrine: Denies heat intolerance Hematologic/Lymphatic: Hematologic/Lymphatic: Denies easy bleeding Allergic/Immunologic: Allergic/Immunologic: Denies wheezing Exam Const: General: healthy appearing; No in distress or confusion Orientation/consciousness: oriented to person, oriented to place, oriented to time and No confusion HENMT: Head: normal to inspection Eyes: Conjunctivae: conjunctivae normal Sclera: sclerae normal Neck: Neck: supple Resp: Effort & Inspection: normal respiratory effort and no audible wheezes Cardio: Rate: regular rate Rhythm: regular rhythm Skin: Wounds: wounds noted ( Abrasion posterior right elbow) Neuro: General: oriented to person, oriented to place, oriented to time and No confusion Extrem: Right upper extremity: shoulder/upper arm axillary nerve sensory function normal, normal ROM (FF 130, Abd 120, ER 70, IR T7) and other (RC 5/5, Bicep 5/5, Deltoid 5/5, ER 5/5); no tenderness and no swelling, elbow/forearm tenderness of the olecranon, swelling of the olecranon ( bursa), abnormal ROM pain with active ROM during with extension and with flexion and with range as follows ( lacks 5? of extension, flexion to 130?) and other (bicep 5/5, tricep 4+/5, pronation 5/5, supination 5/5); no ecchymosis and no crepitus, wrist normal ROM and radial pulse present; no tenderness and Extremity exam: right hand neuromotor exam normal wrist extension normal, thumb opposition normal, thumb IP flexion normal and fingers 2-5 ABduction normal, neurosensory exam normal radial nerve sensory function normal, ulnar nerve sensory function normal, median nerve sensory function normal and digital nerve sensory function normal and vascular exam radial pulse present and normal capillary refill; no tenderness, no swelling and no crepitus Left upper extremity: normal to inspection, shoulder/upper arm inspection abnormal, axillary nerve sensory function normal, normal ROM and other (RC 5/5, Bicep 5/5, Del
[2024-04-28] MEDS: VANCOMYCIN 1,750 MG/NS 500 ML 1,750 MG/500 ML BAG 250 MG IVPB (12:17)
--- NOTE | 2024-04-28 13:23 | PM.DS ---
DS: Admitting Diagnosis Discharge Date 04/28 Admitting Diagnosis redness pian to rt elbow DS: Discharge Diagnosis Discharge Diagnosis (1) Cellulitis of right elbow: Code(s): L03.113 - Cellulitis of right upper limb Status: Acute (2) Leukocytosis: Code(s): D72.829 - Elevated white blood cell count, unspecified Status: Acute (3) Olecranon bursitis of right elbow: Code(s): M70.21 - Olecranon bursitis, right elbow Status: Acute (4) Generalized anxiety disorder: Code(s): F41.1 - Generalized anxiety disorder Status: Acute (5) Essential hypertension: Code(s): I10 - Essential (primary) hypertension Status: Acute Plan Final dx: Olecranon bursisit rt elbow, s/p aspiration Admit patient to medical unit under full inpatient status Patient has the cellulitis of the right elbow with possible right olecranon bursitis Continue with IV vancomycin in our hospital with pharmacy to dose based on renal functions Labs and electrolytes reviewed from transferring ER Patient's leukocytosis was borderline high at 12.4 - monitor 04/26- aspiration of olecranon bursa per ortho. pain management- norco prn. possible discharge tomorrow based on clinical improvement with ortho following cultures outpt Repeat labs in a.m. Electrolyte replacement as per protocol. Patient will be monitored very closely on the floor. # chronic htn- continue home lisinopril 20 mg # chronic insomnia- continue home trazodone DS: Summary Hospital Course Hospital Course: 33-year-old male presents to the emergency room for evaluation of redness swelling and pain to his right elbow. He was in a family birthday doing an obstacle course on his arms and knees with his friends and family few days ago., which caused abrasions on his knees and elbows. He was gardening a couple days ago and added few more abrasions. He noticed some swelling of his right elbow with redness, got concerned and went to [place] [facility] for evaluation. He was diagnosed with cellulitis, given 1 dose of IV Rocephin and discharged on oral clindamycin. ER physician also marked edges of the affected area and instructed him to come back to the ER if the redness extends those marked lines. He came to our ER this morning for evaluation, was treated and discharged. He got worse in the afternoon hence went back to [place] [facility] who evaluated patient and recommended admission for IV antibiotics. No bed was available in local hospital - so he was accepted as a direct admission here. He is admitted for IV antibiotics, orthopedic evaluation in a.m (consult is placed per Dr Samayoa), medical management and further workup. Ortho was consulted for possible aspiration. 04/27- 1 day s/p aspiration right elbow olecranon bursa. Pain is controlled- took norco last night prior to bed and no meds needed today. Will continue IV Vancomycin and Ceftriaxone. Possible transition to oral antibiotics with discharge tomorrow depending on clinical improvement. Ortho will follow cultures as an outpatient and adjust antibiotic therapy as indicated. Time spent discussing smoking cessation with patient: more than 10 minutes Status at Discharge Functional status at discharge: independent ambulation Overall status at discharge: patient is back to baseline Time Spent with Patient Time attestation: Total time spent providing and/or coordinating discharge services: Time spent: Less than 30 minutes Exam Narrative: PHYSICAL EXAMINATION: Vital signs: Please see the chart General physical exam: Obese white gentleman, lying in bed, pleasant and cooperative with exam Head/eyes: Atraumatic, EOMI, PERRLA ENT: Moist mucous membranes, nasal passages clear Neck: Supple, full range of motion, trachea midline CVS: S1 + S2, regular rate and rhythm, no murmurs Respiratory: Bilaterally fair air entry in both lung proctor, mild B/L crackles, symmetric chest expansion, no distress Abdomen: Soft, non-tender,
[2024-04-28 14:00] VITALS: BP 119/64; PULSE 64; RESP 14; TEMP 36.2; O2SAT 95
== END 2024-04-28 15:55 | disposition home or self-care (01) | DRG 558 ==
LOC: ANH3MEDSUR 13:44
PROVIDERS: Nurse Practitioner Family; Admitting Provider Family Medicine; PCP Family Medicine; Visit Provider Family Medicine
DX: M71.121 Other infective bursitis, right elbow (principal); L03.113 Cellulitis of right upper limb; B95.61 Methicillin susceptible Staphylococcus aureus infection as the cause of diseases classified elsewhere; I10 Essential (primary) hypertension; F41.1 Generalized anxiety disorder
CPT/HCPCS: 36415; 73080; 80048; 80053; 80202; 83735; 84100; 85025; 87070; 87075; 87081; 87181; 87205; 89051; 89060; 99285; A9270; J0696; J1650; J1741; J3370; J7030; J7050

== ENCOUNTER 2025-05-30 08:27 | Outpatient (CLI) | payer OTHER, SELFPAY ==
[2025-05-30 09:25] LABS: Alanine Aminotransferase 31 U/L (6-50); Albumin Level 4.5 g/dL (3.5-5.1); Alkaline Phosphatase 59 U/L (38-126); Anion Gap 6 mmol/L (4-12); Aspartate Amino Transferase 26 U/L (17-59); Bilirubin,Total 1.2 mg/dL (0.2-1.3); Blood Urea Nitrogen 15 mg/dL (9-20); Calcium 9.0 mg/dL (8.4-10.2); Carbon Dioxide 23 mmol/L (22-30); Chloride 106 mmol/L (98-107); Cholesterol 120 mg/dL (0-200); Estimated Glomerular Filt Rate > 60; Glucose 83 mg/dL (65-110); HDL Direct 43 mg/dL; Osmolality Calculated 279 mOsm/kg (285-295); Potassium 4.6 mmol/L (3.4-5.0); Sodium 135 mmol/L (137-145); Total Protein 6.9 g/dL (6.3-8.2); Triglycerides 97 mg/dL (<150)
== END 2025-05-30 08:28 | disposition home or self-care (01) ==
PROVIDERS: PCP Family Medicine; Visit Provider Nurse Practitioner Family
DX: E78.2 Mixed hyperlipidemia (principal)
CPT/HCPCS: 36415; 80053; 80061